=== PATIENT | male | born 1940 | race African-American/Black ===

== ENCOUNTER 2016-11-21 15:16 | Emergency (ER) | payer MEDICARE, OTHER ==
[~2016-11-21] VITALS: Ht 170.2 cm; Wt 106.8 kg
[~2016-11-21 15:16] MED LIST: ALIS300T PO; AMLO-511 PO; AZEL23SP NS; CARV40CR PO; FINA5TAB41 PO; METF500T4 PO; PERCT PO; PRAM0.7513 PO; RIVA10 PO; ROSU20 PO; TAMS0.4C32 PO; TOLT4CAP33 PO
[2016-11-21 15:37] LABS: GLUCOSE,POINT OF CARE 100 MG/DL (70-110)
[2016-11-21] MEDS ORDERED: ChlorproMAZINE HCL 25 MG TABLET PO ONE (17:45)
[2016-11-21 19:21] VITALS: BP 141/82
== END 2016-11-21 19:25 | disposition home or self-care (01) ==
LOC: EMS 15:18
DX: R06.6 Hiccough (principal); I10 Essential (primary) hypertension; E78.00 Pure hypercholesterolemia, unspecified; Z88.8 Allergy status to other drugs, medicaments and biological substances; Z91.040 Latex allergy status
CPT/HCPCS: 71020; 82962; 93005; 99284

== ENCOUNTER 2019-07-02 16:58 | Emergency (ER) | payer MEDICARE, OTHER ==
[~2019-07-02] VITALS: Ht 167.6 cm; Wt 136.0 kg
[~2019-07-02 16:58] MED LIST changes: -AMLO-511 PO; +AMLO5TAB9 PO; +METF-960 PO; -METF500T4 PO; -ROSU20 PO; +ROSU20TA23 PO; +TAMS-13 PO; -TAMS0.4C32 PO
[2019-07-02] MEDS ORDERED: KETOROLAC TROMETHAMINE 30 MG/ML VIAL IM ONE (20:00)
[2019-07-02 22:00] VITALS: BP 138/72
== END 2019-07-02 22:05 | disposition home or self-care (01) ==
LOC: EMS 16:58
DX: S16.1XXA Strain of muscle, fascia and tendon at neck level, initial encounter (principal); I10 Essential (primary) hypertension; E78.00 Pure hypercholesterolemia, unspecified; G89.29 Other chronic pain; Z88.8 Allergy status to other drugs, medicaments and biological substances; Z91.040 Latex allergy status; Z79.84 Long term (current) use of oral hypoglycemic drugs; X58.XXXA Exposure to other specified factors, initial encounter; Y93.89 Activity, other specified; Y92.89 Other specified places as the place of occurrence of the external cause; Y99.8 Other external cause status
CPT/HCPCS: 72050; 96372; 99283; J1885

== ENCOUNTER → 2021-11-19 | Outpatient (CLI) | payer MEDICARE, OTHER ==
[~2021-11-19] MED LIST changes: +AMLO-257 PO; -AMLO5TAB9 PO; +CARV40CP11 PO; -CARV40CR PO; +FINA-27 PO; -FINA5TAB41 PO; +METF-1211 PO; -METF-960 PO; -RIVA10 PO; +RIVA10TA PO; -ROSU20TA23 PO; +ROSU20TA73 PO; +TOLT4CAP PO; -TOLT4CAP33 PO
== END | disposition home or self-care (01) ==
LOC: LABPV 10:07
PROVIDERS: ATTEND Internal Medicine
DX: M17.12 Unilateral primary osteoarthritis, left knee (principal); I70.8 Atherosclerosis of other arteries; M25.562 Pain in left knee
CPT/HCPCS: 73562-TC

== ENCOUNTER → 2022-01-14 | Outpatient (CLI) | payer MEDICARE, OTHER | END | disposition home or self-care (01) | LOC: RADMN 09:47 | PROVIDERS: ATTEND Pain Medicine Interventional Pain Medicine | DX: M16.12 Unilateral primary osteoarthritis, left hip (principal); I70.222 Atherosclerosis of native arteries of extremities with rest pain, left leg; M25.559 Pain in unspecified hip; Z96.641 Presence of right artificial hip joint | CPT/HCPCS: 73503 ==

== ENCOUNTER → 2022-10-01 | Outpatient (CLI) | payer MEDICARE, OTHER | END | disposition home or self-care (01) | LOC: RADPV 10:57 | PROVIDERS: ATTEND Internal Medicine | DX: E04.2 Nontoxic multinodular goiter (principal) | CPT/HCPCS: 76536 ==

== ENCOUNTER 2024-06-05 10:12 | Emergency (ER) | payer MEDICARE, OTHER ==
[~2024-06-05] VITALS: Ht 177.8 cm; Wt 104.5 kg
[~2024-06-05 10:12] MED LIST changes: +CARV40CP PO; -CARV40CP11 PO; -TAMS-13 PO; +TAMS0.4C94 PO
[2024-06-05 10:30] VITALS: BP 124/60; PULSE 62; RESP 19; TEMP 97.9; O2SAT 98
[2024-06-05 10:46] LABS: GLUCOMETER DEV NAME(LOC) ER.7; GLUCOSE,POINT OF CARE 96 MG/DL (70-110)
[2024-06-05] MEDS: PredniSONE 20 MG TABLET PO ONE (11:17)
[2024-06-05] MEDS: DiphenhydrAMINE HCL 25 MG CAPSULE PO ONE (11:17)
[2024-06-05] MEDS ORDERED: PRED-554 PO (11:52)
[2024-06-05] MEDS ORDERED: DIPH25CA85 PO (11:52)
== END 2024-06-05 12:07 | disposition home or self-care (01) ==
LOC: EMS 10:12
DX: T78.1XXA Other adverse food reactions, not elsewhere classified, initial encounter (principal); I10 Essential (primary) hypertension; E78.00 Pure hypercholesterolemia, unspecified; Z91.040 Latex allergy status; Z98.890 Other specified postprocedural states; Z88.8 Allergy status to other drugs, medicaments and biological substances; X58.XXXA Exposure to other specified factors, initial encounter
CPT/HCPCS: 99283; 82962; J7512